=== PATIENT | male | born 1970 | race Caucasian/White ===

== ENCOUNTER 2017-08-30 09:22 | Emergency (ER) | payer OTHER ==
--- NOTE | 2017-08-30 09:47 | UC ---
FLU HPI - History of Current Complaint Chief Complaint: UCRespiratory Stated Complaint: FLU SYMPTOMS Hx Obtained From: Patient Onset/Duration: Gradual Onset - started with runny nose 10 days ago, then nasal congestion, however cough started over 2 days and is worse today. exp chills, sweats last 2 days. did not take temp. is using DayQuil for symp relief. thinks he may have the flu (not vacc this year) Severity Currently: Mild Pain Intensity: 6 Associated Signs & Symptoms: Positive: Cough, Nasal Congestion - Allergy/Home Medications Allergies/Adverse Reactions: Allergies Allergy/AdvReac Type Severity Reaction Status Date / Time No Known Allergies Allergy Verified 08/30/17 09:30 PMH/Surg Hx/FS Hx/Imm Hx Previously Healthy: Yes - Surgical History Surgical History: Yes Surgery Procedure, Year, and Place: appy - Family History Known Family History: Positive: None - Social History Occupation: Employed Full-time - sales Lives: With Family Alcohol Use: Weekly Substance Use Type: None Smoking Status (MU): Never Smoked Tobacco - Immunization History Most Recent Influenza Vaccination: none Review of Systems Constitutional: Chills, Fatigue Skin: Negative Eyes: Negative ENT: Sore Throat - mild (pnd), Sinus Congestion Respiratory: Cough Cardiovascular: Negative Gastrointestinal: Negative Neurological: Negative Psychological: Negative Is Patient Immunocompromised?: No All Other Systems Reviewed And Are Negative: Yes Physical Exam Triage Information Reviewed: Yes Appearance: Well-Appearing, No Pain Distress, Obese Vital Signs: Initial Vital Signs Temp 96.8 F 08/30/17 09:31 Pulse 84 08/30/17 09:31 Resp 20 08/30/17 09:31 BP 160/100 08/30/17 09:31 Pulse Ox 99 08/30/17 09:31 Vital Signs Reviewed: Yes Respiratory Exam: Normal Respiratory: Positive: Lungs clear Cardiovascular Exam: Normal Musculoskeletal Exam: Normal Neurological Exam: Normal Neurological: Positive: Alert Psychological Exam: Normal Skin Exam: Normal Skin: Negative: rashes Flu Course/Dx - Differential Dx/Diagnosis Differential Diagnosis/HQI/PQRI: Bronchitis, Influenza, Pneumonia, Upper Respiratory Infection Provider Diagnoses: Bronchitis Discharge - Discharge Plan Condition: Good Disposition: HOME Prescriptions: Azithromycin TAB* [Zithromax TAB (Z-EDUARD) 250 mg #6 tabs] 2 tab PO .TODAY, THEN 1 DAILY #1 eduard Patient Education Materials: Acute Bronchitis (ED) Referrals: No Primary Care Phys,NOPCP [Primary Care Provider] - Additional Instructions: Ddrink plenty of fluids and rest take zithromax antibiotic as diretced Use over the counter DayQuil/NyQuil for symptom relief Return here or to provider in home town if symptoms worsen at any time
== END 2017-08-30 10:27 | disposition home or self-care (01) ==
LOC: UCEAST 09:22
DX: J40 Bronchitis, not specified as acute or chronic (principal)
CPT/HCPCS: 87502; 99202; G0463